=== PATIENT | female | born 1990 | race African-American/Black ===

== ENCOUNTER 2017-09-05 06:58 | Emergency (ER) | payer OTHER ==
[~2017-09-05] VITALS: Ht 167.6 cm; Wt 67.1 kg
[2017-09-05 07:04] VITALS: BP 112/71; Ht 167.6 cm; Wt 67.1 kg
== END 2017-09-05 07:30 | disposition home or self-care (01) ==
LOC: ED 06:58
DX: J02.9 Acute pharyngitis, unspecified (principal)